=== PATIENT | male | born 1980 | race Caucasian/White ===

== ENCOUNTER 2017-07-11 08:35 | Day surgery (SDC) | payer BC, OTHER ==
[2017-07-03 10:13] VITALS: BMI 39.3
[~2017-07-11 08:35] MED LIST: DEXAMETHASONE SOD PHOSPHATE 10 MG/ML 1 ML VIAL IV ONE; HEPARIN SODIUM,PORCINE 5,000 UNIT/ML 1 ML VIAL SQ ONE; LACTATED RINGERS 1,000 ML IV ONE; LIDOCAINE 1% 20 ML VIAL (10MG/ML) FOR IV START INTRADERMA PRN; ONDANSETRON 4 MG/2 ML VIAL IVP ONE; SCOPOLAMINE 1.5MG/72HR PATCH TRANSDERM ONE
[2017-07-11 09:32] LABS: Glucose,Whole Blood 122 mg/dL (75-99)
--- NOTE | 2017-07-11 10:13 | P.GSHP ---
History of Present Illness H&P Date: 07/11/17 Chief Complaint: Umbilical hernia This is a 37-year-old male from Dr. Jayjay Farmer. Patient presents today for laparoscopic robotic repair of umbilical hernia. He's been having pain in his umbilicus. He seen Kathy found have a small reducible umbilical hernia. Past Medical History Additional Past Medical History / Comment(s): gout. umbilical hernia History of Any Multi-Drug Resistant Organisms: None Reported Past Surgical History: Adenoidectomy, Orthopedic Surgery, Tonsillectomy Additional Past Surgical History / Comment(s): lt knee scope Past Anesthesia/Blood Transfusion Reactions: No Reported Reaction Smoking Status: Never smoker - Past Family History Father Family Medical History: Cancer Medications and Allergies Home Medications Medication Instructions Recorded Confirmed Type Allopurinol [Zyloprim] 300 mg PO HS 07/03/17 07/11/17 History Allergies Allergy/AdvReac Type Severity Reaction Status Date / Time No Known Allergies Allergy Verified 07/11/17 08:52 Surgical - Exam Vital Signs Temp Pulse Resp BP Pulse Ox 98.3 F 67 16 145/83 98 07/11/17 08:54 07/11/17 08:54 07/11/17 08:54 07/11/17 08:54 07/11/17 08:54 - General well developed, no distress - Eyes PERRL - ENT normal pinna - Neck no masses - Respiratory normal expansion - Cardiovascular Rhythm: regular - Abdomen Abdomen: soft, non tender Hernia: umbilical (Reducible umbilical hernia) Results - Labs Abnormal Lab Results - Last 24 Hours (Table) 07/11/17 Range/Units 09:11 POC Glucose (mg/dL) 122 H (75-99) mg/dL Assessment and Plan Assessment: Umbilical hernia. We'll perform laparoscopic robotic system repair.
[2017-07-11] MEDS ORDERED: GLYCOPYRROLATE 0.2 MG/ML 2 ML VIAL ONE (10:50)
[2017-07-11] MEDS ORDERED: HYDROmorphone (PF) 1 MG/ML ONE (10:50)
[2017-07-11] MEDS ORDERED: SUCCINYLCHOLINE CHLORIDE 100 MG/5 ML SYR IV ONE (10:50)
[2017-07-11] MEDS ORDERED: fentaNYL (PF) 50 MCG/ML 2 ML AMP ONE (10:50)
[2017-07-11] MEDS ORDERED: ROCURONIUM BROMIDE 10 MG/ML 10 ML VIAL IV ONE (10:50)
[2017-07-11] MEDS ORDERED: MIDAZOLAM 2 MG/2 ML VIAL ONE (10:50)
[2017-07-11] MEDS ORDERED: PROPOFOL 10 MG/ML 20 ML VIAL IV ONE (10:50)
[2017-07-11] MEDS ORDERED: KETOROLAC 30 MG/ML 1 ML VIAL ONE (10:50)
[2017-07-11] MEDS ORDERED: LIDOCAINE 1% INJ 10MG/ML (20 ML MDV) ONE (10:50)
[2017-07-11] MEDS ORDERED: NEOSTIGMINE 1 MG/ML 10 ML VIAL ONE (10:50)
[2017-07-11] MEDS ORDERED: DEXAMETHASONE SOD PHOS (MDV) 100 MG/10 ML VIAL ONE (10:50)
[2017-07-11] MEDS ORDERED: BUPIVACAINE-EPI 0.5%-1:200,000 10 ML VIAL SQ ONE (11:18)
[2017-07-11 12:13] VITALS: TEMP 97
[2017-07-11] MEDS: HYDROmorphone 0.5 MG/0.5 ML SYRINGE IVP PRN ×4 (12:26→12:47)
[2017-07-11] MEDS ORDERED: HYDROcodone/APAP 7.5-325MG 1 EACH TAB PO ONE (13:42)
[2017-07-11 16:27] VITALS: BP 127/76; PULSE 60; RESP 16
--- NOTE | 2017-07-11 19:12 | P.OP ---
Date of Procedure: 07/11/17 Preoperative Diagnosis: Incarcerated umbilical hernia Postoperative Diagnosis: Incarcerated umbilical hernia Procedure(s) Performed: Laparoscopic repair of incarcerated umbilical hernia Anesthesia: MARCELO Surgeon: Gagan Pendleton Estimated Blood Loss (ml): 5 Pathology: none sent Condition: stable Disposition: PACU Description of Procedure: The patient's placed on the operating table in supine position. He received general anesthesia. His abdomen was prepped and draped usual sterile fashion. The abdomen was entered in the left upper quadrant with a 5 mm blade less optical trocar under direct visualization. The abdomen then was insufflated. After adequate insufflation the laparoscope was placed. Cavity. Next a 8 mm robotic trochars placed left lower quadrant and a 12 mm trochars placed in left lateral position. The original 5 mm trocar was exchanged for an 8 mm robotic trocar. The patient's placed in the left side up position. The patient was undocked the robot. The umbilical hernia was visualized. There was incarcerated fat within the umbilical hernia. He is a hook cautery incarcerated fat and hernia sac were dissected free. The fascial defect was then closed with OV lock suture. The fascial defect was then buttressed with ventral light ST mesh. This secured with 2 OV lock suture. The patient was then undocked the robot. The needles were retrieved. . The 12 mm trocar site was closed with 0 Ethibond suture. The trochars withdrawn. The skin was closed interrupted 3-0 Monocryl suture. Dermabond was applied. Patient was sent to recovery in stable condition. Additional CC's:
== END 2017-07-11 17:46 | disposition home or self-care (01) ==
LOC: OR 08:35
PROVIDERS: ATTEND Surgery
DX: K42.0 Umbilical hernia with obstruction, without gangrene (principal); M10.9 Gout, unspecified; Z79.899 Other long term (current) drug therapy
CPT/HCPCS: 49653; S2900